=== PATIENT | female | born 1995 | race Caucasian/White ===

== ENCOUNTER 2016-10-24 08:13 | Outpatient (CLI) | payer OTHER ==
[~2016-10-24] VITALS: Ht 157.5 cm; Wt 79.4 kg
[~2016-10-24 08:13] MED LIST: BACTRIM,SEPT1 TABLET PO; BIRTH CONTROL; BIRTH CONTROL IM; FLOMAX0.4 MG PO; KEFLEX500 MG PO; NUVARING VAGIN1 EACH VG; PERCOCET 5/31 TABLET PO; PHENAZOPYRIDIN200 MG PO; POTASSIUM CITR15 MEQ PO; PRENATAL TABLE1 EAC3 PO; RANITIDINE HCL150 MG PO; ZOFRAN ODT4 MG PO; ZOFRAN4 MG PO; ZOLOFT100 MG PO
[2016-10-24 08:56] VITALS: BP 116/71
[2016-10-24] MEDS ORDERED: FIORICET,ESG1 TABLET PO ×2 (09:00→09:01)
[2016-10-24 09:32] VITALS: BP 117/76
[2016-10-24 10:17] LABS: ADD MIUA? NO; BILIRUBIN NEGATIVE; BLOOD NEGATIVE; COLOR YELLOW ((YELLOW)); GLUCOSE (STRIP) NEGATIVE; KETONES NEGATIVE; LEUKOCYTES NEGATIVE; NITRITE NEGATIVE; PROTEIN (STRIP) NEGATIVE; SPECIFIC GRAVITY 1.006 (1.000-1.030); UCUL ADDED? NO; UROBILINOGEN 0.2 MG/DL (0.2-1.0)
[2016-10-24 10:17] LABS: ALKALINE PHOSPHATASE 119 IU/L (3-129); ANION GAP 11 MEQ/L (2-14); CHLORIDE 105 MEQ/L (99-109); GFR ESTIMATE (CALCULATED) > 59 mL/min/; GLUCOSE 72 mg/dL (70-99); POTASSIUM 2.6 MEQ/L (3.7-5.4); SAMPLE HEMOLYSIS CHECK 0; SAMPLE ICTERIC CHECK 0; SAMPLE LIPEMIA CHECK 0; SODIUM 141 MEQ/L (136-147); TOTAL BILIRUBIN 0.3 MG/DL (0.0-1.0); UREA NITROGEN (BUN) 5 mg/dL (9-23)
[2016-10-24 11:46] VITALS: BP 113/67
== END 2016-10-24 15:31 | disposition home or self-care (01) ==
LOC: LDRP-OP 08:13 → 2WEST 08:14
PROVIDERS: Advanced Practice Midwife
DX: O99.73 Diseases of the skin and subcutaneous tissue complicating the puerperium (principal); R21 Rash and other nonspecific skin eruption; L29.9 Pruritus, unspecified; O99.285 Endocrine, nutritional and metabolic diseases complicating the puerperium; E87.6 Hypokalemia; Z3A.38 38 weeks gestation of pregnancy
CPT/HCPCS: 59025; 80053; 81003; 82239 90; 84132 91; G0378

== ENCOUNTER 2016-11-08 21:15 | Inpatient (IN) | payer OTHER ==
[~2016-11-08] VITALS: Ht 157.5 cm; Wt 78.9 kg
[~2016-11-08 21:15] MED LIST changes: +FIORICET,ESG1 TABLET PO
[2016-11-08 21:32] VITALS: BP 138/99
[2016-11-08 21:49] VITALS: BP 137/82
[2016-11-08 22:43] LABS: EOSINOPHIL COUNT 0.1 K/uL (0-0.3); HEMATOCRIT 32.1 % (36.0-46.0); IMMATURE GRANULOCYTE (%) 0.5 % (0.0-0.7); IMMATURE GRANULOCYTE COUNT 0.1 K/uL; INSTRUMENT ABS NEUTROPHIL CT 6.9 K/uL; LYMPHOCYTE COUNT 2.6 K/uL (1.0-2.8); MCH 28.3 PG (29.0-34.0); MCV 85.6 FL (83-99); MEAN PLAT.VOLUME 11.7 uM^3 (9.5-12.4); MONOCYTE (%) 6.7 % (3-12); MONOCYTE COUNT 0.7 K/uL (0-0.8); NEUTROPHIL (%) 66.6 % (45-76); NEUTROPHIL COUNT 6.9 K/uL (1.8-6.4); PLATELET COUNT 200 K/uL (156-360); RBC DIS.WIDTH-SD 39.6 % (39-53); RED BLOOD COUNT 3.75 M/uL (3.80-5.20); WHITE BLOOD COUNT 10.3 K/uL (4.1-10.2)
[2016-11-08 22:55] VITALS: BP 129/79
[2016-11-08 22:55] LABS: ANION GAP 11 MEQ/L (2-14); CHLORIDE 105 MEQ/L (99-109); POTASSIUM 3.1 MEQ/L (3.7-5.4); SAMPLE HEMOLYSIS CHECK 0; SAMPLE ICTERIC CHECK 0; SAMPLE LIPEMIA CHECK 0; SODIUM 140 MEQ/L (136-147); TOTAL BILIRUBIN 0.3 MG/DL (0.0-1.0)
[2016-11-08 23:01] LABS: ALKALINE PHOSPHATASE 155 IU/L (3-129); GFR ESTIMATE (CALCULATED) > 59 mL/min/; GLUCOSE 66 mg/dL (70-99); LACTATE DEHYDROGENASE 184 IU/L (20-246); UREA NITROGEN (BUN) 8 mg/dL (9-23); URIC ACID 5.6 mg/dL (3.1-9.2)
[2016-11-08 23:27] VITALS: BP 118/76
[2016-11-09] VITALS (28 sets, daily range): BP systolic 114–156; BP diastolic 63–94
[2016-11-09 00:02] LABS: ADD MIUA? YES; BILIRUBIN NEGATIVE; BLOOD LARGE; COLOR YELLOW ((YELLOW)); GLUCOSE (STRIP) NEGATIVE; KETONES NEGATIVE; LEUKOCYTES LARGE; NITRITE NEGATIVE; PROTEIN (STRIP) NEGATIVE; SPECIFIC GRAVITY 1.008 (1.000-1.030); UROBILINOGEN 0.2 MG/DL (0.2-1.0)
[2016-11-09 00:04] LABS: AMPHETAMINES QUANT VALUE 0 NG/ML; BARBITUATES QUANT VALUE 0 NG/ML; BENZODIAZEPINES QUANT VALUE 0 NG/ML; BENZODIAZEPINES, URINE SCREEN Negative (200 ng/mL); MARIJUANA QUANT VALUE 0 NG/ML; OPIATES QUANTITATIVE VALUE 0 NG/ML; PHENCYCLIDINE QUANT VALUE 0 NG/ML
[2016-11-09 00:08] LABS: BACTERIA RARE /HPF; EPITHELIAL CELLS 1+ /HPF; MUCUS TRACE /LPF; RED BLOOD CELLS 0-5 /HPF (0-5); UCUL ADDED? NO; WHITE BLOOD CELLS 20-30 /HPF (0-5)
[2016-11-09 06:38] LABS: CANDIDA DNA PROBE NEGATIVE; GARDNERELLA DNA PROBE POSITIVE; INTERNAL CONTROL VALID? YES
[2016-11-09 12:06] LABS: UR CREATININE CONCENTRATION 57.3 MG/DL
[2016-11-09 12:39] LABS: CHLAMYDIA TRACHOMATIS NEGATIVE; NEISSERIA GONORRHOEAE NEGATIVE
[2016-11-10] VITALS (9 sets, daily range): BP systolic 95–142; BP diastolic 55–86
[2016-11-10 12:51] LABS: EOSINOPHIL (%) 0.2 % (0-5); HEMATOCRIT 23.8 % (36.0-46.0); IMMATURE GRANULOCYTE (%) 0.6 % (0.0-0.7); IMMATURE GRANULOCYTE COUNT 0.1 K/uL; INSTRUMENT ABS NEUTROPHIL CT 13.6 K/uL; LYMPHOCYTE COUNT 2.3 K/uL (1.0-2.8); MCH 28.6 PG (29.0-34.0); MCHC 32.4 G/DL (30.0-36.0); MCV 88.5 FL (83-99); MEAN PLAT.VOLUME 11.6 uM^3 (9.5-12.4); MONOCYTE (%) 4.6 % (3-12); MONOCYTE COUNT 0.8 K/uL (0-0.8); NEUTROPHIL (%) 80.9 % (45-76); NEUTROPHIL COUNT 13.6 K/uL (1.8-6.4); PLATELET COUNT 171 K/uL (156-360); RBC DIS.WIDTH-CV 13.7 % (11.8-14.6); RBC DIS.WIDTH-SD 43.8 % (39-53)
[2016-11-10 12:54] LABS: RED BLOOD COUNT 2.69 M/uL (3.80-5.20); WHITE BLOOD COUNT 16.8 K/uL (4.1-10.2)
[2016-11-11 04:01] VITALS: BP 122/67
[2016-11-11 08:39] VITALS: BP 130/84
[2016-11-11 11:00] VITALS: BP 127/76
[2016-11-11 17:44] VITALS: BP 133/70
[2016-11-11 19:15] VITALS: BP 132/71
[2016-11-12] VITALS (7 sets, daily range): BP systolic 106–134; BP diastolic 51–74
[2016-11-13 03:19] VITALS: BP 126/74
[2016-11-13 08:54] VITALS: BP 129/74
[2016-11-13] MEDS ORDERED: DOCUSATE SODIU100 MG PO (10:37)
[2016-11-13] MEDS ORDERED: CHROMAGEN,1 CAPSULE PO (10:37)
[2016-11-13] MEDS ORDERED: ENDOCET 5-3251 EACH PO (10:37)
[2016-11-13] MEDS ORDERED: METRONIDAZOLE500 MG PO (10:37)
[2016-11-13] MEDS ORDERED: IBUPROFEN800 MG PO (10:37)
== END 2016-11-13 15:40 | disposition home or self-care (01) | DRG 765 ==
LOC: LDRP-OP 21:15 → 2WEST 21:18 → LDRP-OP 12-05 22:06
PROVIDERS: Advanced Practice Midwife; Obstetrics & Gynecology
DX: O62.2 Other uterine inertia (principal); O76 Abnormality in fetal heart rate and rhythm complicating labor and delivery; O99.02 Anemia complicating childbirth; D62 Acute posthemorrhagic anemia; O23.593 Infection of other part of genital tract in pregnancy, third trimester; O77.0 Labor and delivery complicated by meconium in amniotic fluid; O13.4 Gestational [pregnancy-induced] hypertension without significant proteinuria, complicating childbirth; O99.284 Endocrine, nutritional and metabolic diseases complicating childbirth; E87.6 Hypokalemia; Z37.0 Single live birth; Z3A.40 40 weeks gestation of pregnancy
CPT/HCPCS: 80053; 80306 90; 81003; 82570; 83615; 84156; 84550; 85025; 87070; 87075; 87086; 87205; 87480; 87491; 87510; 87591; 87660; 88307; C1755; G0378; J0595; J1200; J1335; J1885; J2175; J2270; J2274; J2405; J3010; J7050; J7120

== ENCOUNTER 2017-07-07 10:33 | Emergency (ER) | payer OTHER ==
[~2017-07-07] VITALS: Ht 157.5 cm; Wt 67.7 kg
[~2017-07-07 10:33] MED LIST changes: +CHROMAGEN,1 CAPSULE PO; +DOCUSATE SODIU100 MG PO; +ENDOCET 5-3251 EACH PO; +IBUPROFEN800 MG PO; +METRONIDAZOLE500 MG PO
[2017-07-07 11:21] LABS: BASOPHIL COUNT 0.1 K/uL (0-0.1); EOSINOPHIL (%) 8.5 % (0-5); EOSINOPHIL COUNT 0.5 K/uL (0-0.3); HEMATOCRIT 44.1 % (36.0-46.0); IMMATURE GRANULOCYTE (%) 0.3 % (0.0-0.7); INSTRUMENT ABS NEUTROPHIL CT 3.2 K/uL; MCH 29.9 PG (29.0-34.0); MCHC 34.2 G/DL (30.0-36.0); MCV 87.3 FL (83-99); MEAN PLAT.VOLUME 10.5 uM^3 (9.5-12.4); MONOCYTE (%) 7.2 % (3-12); MONOCYTE COUNT 0.5 K/uL (0-0.8); NEUTROPHIL (%) 50.9 % (45-76); NEUTROPHIL COUNT 3.2 K/uL (1.8-6.4); PLATELET COUNT 272 K/uL (156-360); RBC DIS.WIDTH-CV 12.8 % (11.8-14.6); RBC DIS.WIDTH-SD 40.5 % (39-53); RED BLOOD COUNT 5.05 M/uL (3.80-5.20); WHITE BLOOD COUNT 6.4 K/uL (4.1-10.2)
[2017-07-07 11:23] LABS: ADD MIUA? YES; BILIRUBIN NEGATIVE; BLOOD LARGE; COLOR YELLOW ((YELLOW)); GLUCOSE (STRIP) NEGATIVE; KETONES NEGATIVE; LEUKOCYTES NEGATIVE; NITRITE NEGATIVE; PROTEIN (STRIP) 100; SPECIFIC GRAVITY 1.029 (1.000-1.030)
[2017-07-07 11:34] LABS: CHLORIDE 105 mEq/L (99-109); POTASSIUM 3.4 mEq/L (3.7-5.4); SODIUM 138 mEq/L (136-147)
[2017-07-07 11:36] LABS: BACTERIA 1+ /HPF; EPITHELIAL CELLS 1+ /HPF; MUCUS 4+ /LPF; UCUL ADDED? YES
[2017-07-07 11:36] LABS: GLUCOSE 86 mg/dL (70-99)
[2017-07-07 11:38] LABS: ANION GAP 13 MEQ/L (2-14)
[2017-07-07 11:40] LABS: GFR ESTIMATE (CALCULATED) > 59 mL/min/
[2017-07-07 11:41] LABS: UREA NITROGEN (BUN) 14 mg/dL (9-23)
[2017-07-07] MEDS ORDERED: TYLENOL WITH C1 EACH PO (12:48)
[2017-07-07 13:31] VITALS: BP 126/74
== END 2017-07-07 13:32 | disposition home or self-care (01) ==
LOC: EME 10:33
PROVIDERS: Emergency Medicine
DX: R10.2 Pelvic and perineal pain (principal); Z87.440 Personal history of urinary (tract) infections; Z87.442 Personal history of urinary calculi
CPT/HCPCS: 74176; 80048; 81003; 85025; 87086; 99281; 99285; J2270; J2405